=== PATIENT | female | born 1980 | race Caucasian/White ===

== ENCOUNTER 2017-10-26 01:18 | Emergency (ER) | payer BC, MEDICARE ==
[~2017-10-26] VITALS: Ht 170.2 cm; Wt 91.6 kg
[~2017-10-26 01:18] MED LIST: AUGM875T3 PO; HYDR-3533 PO; MULT-28 PO; NAPR500 PO; ZOFR4TAB3 SL
[2017-10-26 01:26] VITALS: BP 129/90; PULSE 78; RESP 20; TEMP 97.8; O2SAT 99
[2017-10-26] MEDS ORDERED: NEUR300C PO (01:50)
[2017-10-26 01:51] LABS: BILIRUBIN, URINE NEG (NEG); BLOOD, URINE TRACE (NEG); GLUCOSE,URINE NEG (NEG); KETONE, URINE NEG (NEG); NITRITE,URINE NEG (NEG); URINE LEUKOCYTE ESTERASE NEG (NEG)
[2017-10-26 02:03] LABS: RBC, URINE 0-3 /hpf (0-3); SQUAMOUS EPITHELIAL CELL URINE 0-5 /hpf (0-5); URINE COLOR YELLOW (YELLW/STRAW); WBC, URINE 0-2 /hpf (0-5)
[2017-10-26] MEDS ORDERED: MACR100C2 PO (02:36)
[2017-10-26] MEDS ORDERED: PHEN0.4T PO (02:36)
--- NOTE | 2017-10-26 02:37 | PD ---
HPI Chief Complaint: Complaint Time Seen by Provider: 02:29 Travel History International Travel<30 days: No Contact w/Intl Traveler<30days: No Traveled to known affect area: No History of Present Illness HPI The patient is a 37-year-old female that complains of frequency, dysuria and urgency as well as bilateral flank pain for 1 day. She denies any fever, nausea or vomiting. She has never had interstitial cystitis. She does have a history of nephrolithiasis. PFSH Past Medical History Hx Anticoagulant Therapy: No Cardiovascular Problems: No Chemotherapy: No Cerebrovascular Accident: No Diabetes: No Diminished Hearing: No Glaucoma: No Hepatitis: No Hiatal Hernia: No Herniated Disk: Yes Hypertension: No Respiratory: No Thyroid Disease: No Influenza Vaccination: Yes ?: Not LMP: sep 2017 : 6 Para: 4 Miscarriage: 2 Dilation and Curettage (D&C): Yes (X's 2) Past Surgical History Gynecologic Surgery: Yes (D&C X 2. 1995 & 2007) Hysterectomy: No Pacemaker: No Other Surgery: Yes (BACK SURGERY X 2) Social History Alcohol Use: No Tobacco Use: Yes (1/2 PPD) Substance Use: No Allergies-Medications (Allergen,Severity, Reaction): Coded Allergies: codeine (Verified Allergy, Severe, THROAT SWELLS HIVES, 10/26/17) Reported Meds & Prescriptions Reported Meds & Active Scripts Active Reported Neurontin (Gabapentin) 300 Mg Cap 300 Mg PO TID Review of Systems Except as stated in HPI: all other systems reviewed are Neg Physical Exam Narrative GENERAL: Well-nourished, well-developed patient. SKIN: Focused skin assessment warm/dry. HEAD: Normocephalic. EYES: No scleral icterus. No injection or drainage. NECK: Supple, trachea midline. No JVD or lymphadenopathy. CARDIOVASCULAR: Regular rate and rhythm without murmurs, gallops, or rubs. RESPIRATORY: Breath sounds equal bilaterally. No accessory muscle use. GASTROINTESTINAL: Abdomen soft, with tenderness to direct palpation on the suprapubic area and bilateral flank Areas, nondistended. No guarding or rebound is present. MUSCULOSKELETAL: No cyanosis, or edema. BACK: Nontender without obvious deformity. No CVA tenderness. Data Data Last Documented VS Vital Signs Date Time Temp Pulse Resp B/P (MAP) Pulse Ox O2 Delivery O2 Flow Rate FiO2 10/26/17 01:50 18 10/26/17 01:26 97.8 78 129/90 (103) 99 Orders Orders Urinalysis - C+S If Indicated (10/26/17 01:33) Ed Urine Pregnancytest Poc (10/26/17 01:35) Labs Laboratory Tests Test 10/26/17 01:30 Urine Color YELLOW Urine Turbidity CLEAR Urine pH 6.0 Urine Specific [place] 1.012 Urine Protein NEG mg/dL Urine Glucose (UA) NEG mg/dL Urine Ketones NEG mg/dL Urine Occult Blood TRACE Urine Nitrite NEG Urine Bilirubin NEG Urine Leukocyte Esterase NEG Urine RBC 0-3 /hpf Urine WBC 0-2 /hpf Urine Squamous Epithelial Cells 0-5 /hpf Microscopic Urinalysis Comment CULT NOT INDICATED MDM Medical Decision Making Medical Screen Exam Complete: Yes Emergency Medical Condition: Yes Medical Record Reviewed: Yes Interpretation(s) The urine shows trace blood but is otherwise normal and culture is not indicated. Differential Diagnosis Interstitial cystitis, cystitis, pyelonephritis, urinary stone Narrative Course The patient likely has pyelonephritis with a false negative urinalysis. She likely has not developed white cells in the urine yet for urine diagnosis. She likely does not have interstitial cystitis. It is unlikely that she would have bilateral urinary stones presenting at exactly the same time along with dysuria , frequency and urgency. Plan: The patient will be given Macrobid for 7 days and Pyridium. She is to follow-up with her primary care physician. Diagnosis Primary Impression: Pyelonephritis Additional Instructions: If the pain suddenly switches to one side you may need a CT scan to see if you have a kidney stone. Follow-up next week with your primary care physician. The Pyridium turns your urine orange but it does not year urinary tract thereby decreasing her symptoms. Increase your liquid intake. Med/Other Pt SpecificInfo: Prescription(s) given Scripts Nitrofurantoin Monohydrate Macrocrystals (Macrobid) 100 Mg Capsule 100 MG PO BID for Infection for 7 Days, #14 CAP 0 Refills Prov: Sergio Mckenzie MD 10/26/17 Phenazopyridine (Pyridium) 100 Mg Tab 100 MG PO Q8H Y for DYSURIA, #21 TAB 0 Refills Prov: Sergio Mckenzie MD 10/26/17 Disposition: DISCHARGE HOME Condition: Stable Sergio Mckenzie MD 14, 2018 02:37
[2017-10-26] MEDS ORDERED: PHENAZOPYRIDINE HCL 100 MG TAB PO ONE (02:45)
[2017-10-26] MEDS ORDERED: NITROFURANTOIN MONOHYD MACROCR 100 MG CAP PO ONE (02:45)
[2017-10-26 02:53] VITALS: BP 134/82
== END 2017-10-26 03:03 | disposition home or self-care (01) ==
LOC: PHED 01:18
DX: N12 Tubulo-interstitial nephritis, not specified as acute or chronic (principal); F17.210 Nicotine dependence, cigarettes, uncomplicated; Z87.442 Personal history of urinary calculi
CPT/HCPCS: 81001; 84703; 99284